=== PATIENT | male | born 1955 | race Caucasian/White ===

== ENCOUNTER 2025-03-15 12:50 | Outpatient (AMB) | payer MEDICARE, SELFPAY ==
--- NOTE | 2025-03-15 12:56 | MHC.OFFVIS ---
Vital Signs 03/15/25 12:57 Height 5 ft 10.5 in Weight 226 lb BMI 32.0 BP 148/91 H Blood Pressure Location Rt brachial Position Sitting Respiration 16 Pulse 82 Pulse Source Pulse Oximeter Pulse Oximetry (%) 94 Oxygen Delivery Method Room Air Intake Visit Reasons: Chronic arthritis Director Payer Required: No Accompanied by: Self / Same As Patient Allergies No Known Allergies Allergy (Verified 03/15/25 12:59) HPI HPI Chronic arthritis: Details: History of Present Illness The patient is a 69-year-old male presenting with generalized aches, pains, and headaches. He reports bilateral hip, neck, and back pain, as well as bilateral knee pain, which has been persistent for about a year. The hip and groin pain has been present for approximately five months. 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 He manages the pain with Advil and Tylenol. He has undergone a knee replacement on the left side and an ankle replacement on the right side. Additionally, he has had an anterior cervical discectomy and fusion (ACDF) at C4-5 and C5-6. The patient has been experiencing increasing arthritis in various joints over the past year, with some joints having been replaced. He has had multiple surgeries, including fusions in his neck and pins in his shoulder for a rotator cuff issue. Recent imaging, including an MRI of the lumbar spine, showed disc, facet, and vertebral endplate degeneration, with foraminal narrowing at the right L4-[address] of the abdomen and pelvis indicated mild to moderate arthritis of the right hip. Pain Description - Onset: Pain in the back for about a year, hip and groin pain for five months - Quality: Constant pain, rated 5 to 8 out of 10 - Location: Bilateral hips, neck, back, and knees - Exacerbating factors: Movements worsen the pain - Relieving factors: Uses Advil and Tylenol for pain management - Interference: Physical labor increases soreness, requiring heat and ice application Physical Exam - Musculoskeletal: Pain on extension and flexion, constant pain without sharp exacerbations, soreness with physical labor Results - MRI of the lumbar spine: Disc, facet, and vertebral endplate degeneration, foraminal narrowing at right L4-5 - CT of the abdomen and pelvis: Mild to moderate arthritis of the right hip Pain Management - Affect: Pain impacts daily activities, causing soreness with physical labor - Analgesia: Uses Advil and Tylenol, pain rated 5 to 8 out of 10 - Adverse Effects: None reported - Activities of Daily Living: Pain limits physical labor, requiring heat and ice application - Aberrant Drug Related Behaviors: None reported [facility] Medical History (Updated 03/16/25 @ 10:04 by Andry Lemus MD) Rotator cuff tear JORDANA (obstructive sleep apnea) Meralgia paresthetica of right side Knee osteoarthritis Hypertension GERD (gastroesophageal reflux disease) Duodenal ulcer Depression Surgical History (Updated 03/15/25 @ 13:04 by Mela Fuentes MA) Status post ankle joint replacement S/P knee replacement Physical Exam Vital Signs: Last Vital Signs Pulse 82 03/15/25 12:57 Resp 16 03/15/25 12:57 BP 148/91 H 03/15/25 12:57 Pulse Ox 94 03/15/25 12:57 Oxygen Delivery Method Room Air 03/15/25 12:57 BMI result Body Mass Index 32.0 Assessment & Plan Assessment & Plan (1) Chronic pain: Code(s): G89.29 - Other chronic pain Category: Medical (2) Lumbar spondylosis: Code(s): M47.816 - Spondylosis without myelopathy or radiculopathy, lumbar region Category: Medical (3) 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 - Discussed temporary medial branch nerve stimulation for chronic axial low back pain due to facet, disc, and vertebral endplate degeneration. If no relief from temporary PNS, can consider SCS for NSBP. - Recommended obtaining a new MRI to assess the current status of the lumbar spine and right hip. - Advised against surgery for back pain unless significant leg pain is present, as surgery may not alleviate back pain. - Agree with discussing treatment options with the patient's neurosurgeon before proceeding with interventions. Patient was informed and verbally consented to the use of an ambient scribe for clinic note documentation during this visit. Discussion Notes I discussed with the patient the option of platelet-rich plasma (PRP) injections for his right hip arthritis, explaining that while it may help arrest arthritic changes, it is not covered by insurance and costs $750 per injection. We also reviewed the potential use of temporary medial branch nerve stimulation for his axial low back pain, noting the mechanisms of action, with a 70% response rate. I advised obtaining a new MRI to evaluate the current condition of his lumbar spine and right hip, and suggested consulting with his neurosurgeon before making decisions about surgical interventions. Patient Instructions - Consider PRP injections for hip arthritis, but note they are not covered by insurance. - Think about temporary nerve stimulation for back pain management. - Obtain a new MRI for lumbar spine assessment if considering surgery for right leg pain. - Discuss treatment options with your neurosurgeon before proceeding. - Avoid surgery for back pain unless leg pain becomes significant. 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
[2025-03-15 12:57] VITALS: BP 148/91; PULSE 82; RESP 16; O2SAT 94; BMI 32.0
--- OUTSIDE RECORDS SUMMARY | 2025-03-15 13:31 | XMS_ITS | Clinical Summary ---
Author Organization [facility] Address [address] [facility] [address] [place] [id number] Phone Care Team Providers Care Sales Support Representative Name Role Phone Javier Cannon MD Primary Care Provider [phone] Medications oxyCODONE 5 MG immediate release tablet Take 5 mg by mouth every 4 (four) hours as needed for moderate pain or 4-6 (on a general 0-10 scale). 06/06/2022 Active ALPRAZolam (XANAX) 0.5 MG tablet Take 0.5 mg by mouth every 8 (eight) hours as needed for anxiety. 06/06/2022 Active cholecalciferol (VITAMIN D3) 5,000 unit tablet Take 2,000 Units by mouth daily. 06/06/2022 Active DULoxetine (CYMBALTA) 60 MG capsule Take 60 mg by mouth daily. 06/06/2022 Active lisinopril (PRINIVIL,ZESTR IL) 5 MG tablet Take 5 mg by mouth daily. 06/06/2022 Active magnesium oxide 250 mg (150 mg elemental) Tab Take 250 mg by mouth daily. 06/06/2022 Active omeprazole (PRILOSEC) 20 mg TbEC Take 20 mg by mouth daily. 06/06/2022 Active traZODone (DESYREL) 100 MG tablet Take 100 mg by mouth nightly at bedtime. 06/06/2022 Active aspirin 325 MG tablet Take 325 mg by mouth 2 (two) times a day. 07/06/2022 Active Social History Tobacco Use Types Packs/Day Years Used Date Smoking Tobacco: Never Smokeless Tobacco: Never Alcohol Use Standard Drinks/Week Comments Not Currently 0 (1 standard drink = 0.6 oz pur e alcohol) Education Answer Date Recorded Are you interested in more education? Not on kelly e 12/21/2022 Are you concerned about learning? Not on file 12/21/2022 No 12/21/2022 No 12/21/2022 Digital Access Answer Date Recorded No 01/19/2023 No 01/19/2023 No 01/19/2023 Reliable internet access at home? Not on file 01/19/2023 Device with a working camera? Not on file Sex and Gender Information Value Date Recorded Sex Assigned at Male 07/08/2021 12:50 PM EST Legal Sex Male 10:34 AM EDT Gender Identity Male 07/08/2021 12:50 PM EST Sexual Orientation Straight 07/08/2021 12 :50 PM EST Last Filed Vital Signs Vital Sign Reading Time Taken Comments Blood Pressure 132/72 07/12/2022 11:50 AM EST Pulse 71 07/12/2022 11:50 AM EST Temperature 36.6 C (97.9 F) 07/12/2022 11:50 AM EST Respiratory Rate 16 06/07/2022 1:40 PM EDT Oxygen Saturation 98% 07/12/2022 11:50 AM EST Inhaled Oxygen Concentration - - Weight - - Height - - Body Mass Index - - Plan of Treatment Health Maintenance Due Date Last Done Comments Adult Td,Tdap Booster 1957 LIPID PANEL 1957 DEPRESSION SCREENING 1969 HEPATITIS C SCREENING 1975 SMOKING STATUS SCREENING (On ce After 26 Yrs) 1983 COLOGUARD 2002 COLONOSCOPY 2002 COLORECTAL CANCER SCREENING 2002 FIT TEST 2002 FOBT 2002 SIGMOIDOSCOPY 2002 VIRTUAL COLONOSCOPY 2002 PNEUMOCOCCAL VACCINES (50+ years) (1 of 1 - PCV) 2007 ZOSTER VACCINES (1 of 2) 2007 CREATININE LEVEL 07/08/2022 07/08/2021 POTASSIUM LEVEL 07/08/2022 07/08/2021 COVID-19 VACCINE (3 - 2023-2 5 season) 2024 10/28/2020, 10/07/2020 RSV VACCINE (1 - 1-dose 75+ series) 2032 HEPATITIS A VACCINES Aged Out No long er eligible based on patient's age to complete this topic HIB VACCINES Aged Out No longer eligi ble based on patient's age to complete this topic MENINGOCOCCAL VACCINES (ACWY) Aged Out No longer eligible based on patient's age to complete this topic MENINGOCOCCAL VACCINES (B) Aged Out N o longer eligible based on patient's age to complete this topic Medical Devices Not on file Procedures Procedure Name Priority Date/Time Associated Diagnosis Comments BASIC METABOLIC PANEL STAT 07/08/2021 12:58 PM EST from Last 3 Months or Most Recently Relevant to Health Maintenance Results * Basic metabolic panel (07/08/2021 12:58 PM EST) SODIUM 142 133 - 146 mmol/L [facility] CHLORIDE 106 96 - 108 mmol/L [facility] POTASSIUM 5.1 3.3 - 5.1 mmol/L [facility] CO2 25 21 - 35 mmol/L [facility] BUN 16 6 - 19 mg/dL [facility] CREATININE 0.70 0.5 - 1.5 mg/dL [facility] GLUCOSE 94 70 - 99 mg/dL [facility] CALCIUM 9.8 8.4 - 10.3 mg/dL [facility] EGFR 100 >59 mL/min/1.7 3m2 [facility] Comment:Estimated glomerular filtration rate calculated using the CKD-EPI equation. ANION GAP 16 10 - 20 mmol/L [facility] Blood 07/08/2021 12:5 8 PM EST 07/08/2021 1:22 PM EST us Bruce Leigh MD LAB BLOOD ORDERABLES Fin al Result [facility] [address] [place] [address] from Last 3 Months or Most Recently Relevant to Health Maintenance [place] [address] [place] [address] [place] [address] [place] [address] [address]MO [address] [address] [place] [address] HMO [facility] HMO Care Teams Sales Support Representative Relationship Specialty Start Date End Date Javier Cannon MD [address] [address] PCP - General Internal Medicine 11/18/20 Additional Source Comments The information contained in this document represents components of the legal health record. It is not the complete legal health record.[facility]
--- OUTSIDE RECORDS SUMMARY | 2025-03-15 13:31 | XMS_ITS | Clinical Summary ---
Author Organization [facility] [address] [facility] Address [address] [place] [address] Phone Care Team Providers Care Printing Roller Polisher Name Role Phone Jessica Pham NP Primary Care Provider [phone] Allergies No known active allergies Medications ibuprofen (ADVIL,MOTRIN) 800 mg tablet Take 1 tablet (800 mg total) by mouth 3 (three) times a day with meals. 4 Active omeprazole (PriLOSEC) [address] capsule Take 1 capsule (20 mg total) by mouth 1 (one) time each day. before a meal 4 Active oxyCODONE (ROXICODONE) 5 mg immediate release tablet TAKE 1 TABLET BY MOUTH EVERY 8 HOURS,X7 DAYS, NEEDED FOR PAIN 4 Active traZODone (DESYREL) 100 mg tablet Take 1 tablet (100 mg total) by mouth. at bedtime. 5 Active gabapentin (NEURONTIN) 300 mg capsule Take 1 capsule (300 mg total) by mouth 2 (two) times a day. 5 Active ALPRAZolam (XANAX) 0.5 mg tablet Take 1 tablet (0.5 mg total) by mouth 2 (two) times a day if needed. Max Daily Amount: 1 mg 5 Active polyethylene glycol (Golytely) 236-22.74-6.74 -5.86 gram solution Take 4L by mouth once for one dose. May substitue any PEG. Starting at 6PM the night before your procedure drink 1 8oz glasses at your own pace until you complete half of the gallon. Finish 2nd half of the gallon 5 hours before your procedure. 4000 mL Active Social History Tobacco Use Types Packs/Day Years Used Date Smoking Tobacco: Never Assessed Sex and Gender Information Value Date Recorded Sex Assigned at Not on file Legal Sex Male 8:30 PM EST Gender Identity Not on file Sexual Orientation Not on file Plan of Treatment Health Maintenance Due Date Last Done Comments DTaP,Tdap,and Td Vaccines (1 - Tdap) 1976 Pneumococcal Vaccine: 50+ Years (1 of 1 - PCV) 2007 Zoster Vaccines (1 of 2) 2007 Abdominal Aortic Aneurysm (AAA) Screen 09/20/2023 Cholesterol Screening (Lipid Panel) 09/20/2023 Falls Risk Assessment 09/20/2023 Hepatitis C Screening 09/20/2023 Medicare Annual Wellness Visit 09/20/2023 Social Influencers of Health Screening 09/20/2023 COVID-19 Vaccine ( - 2023-2 5 season) 2024 Depression Screening 08/26/2024 Hypertension/CHF/CAD Annual BMP Blood Test 12/08/2024 04/17/2022 Influenza Vaccine (#1) 2025 RSV Immunization Adult Patients (1 - 1-dose 75+ series) 2032 Colorectal Cancer Screening: Colonoscopy 12/09/2034 12/09/2024, 11/04/2024 HIB Vaccines Aged Out No longer eligi ble based on patient's age to complete this topic HPV Vaccines Aged Out No longer eligi ble based on patient's age to complete this topic Hepatitis A Vaccines Aged Out No long er eligible based on patient's age to complete this topic Hepatitis B Vaccines Aged Out No long er eligible based on patient's age to complete this topic IPV Vaccines Aged Out No longer eligi ble based on patient's age to complete this topic MMR Vaccines Aged Out No longer eligi ble based on patient's age to complete this topic Meningococcal ACWY Vaccine Aged Out N o longer eligible based on patient's age to complete this topic Meningococcal B Vaccine Aged Out No l onger eligible based on patient's age to complete this topic RSV Immunization Patients Under 20 months Aged Out No longer eligible b ased on patient's age to complete this topic Varicella Vaccines Aged Out No longer eligible based on patient's age to complete this topic Procedures Procedure Name Priority Date/Time Associated Diagnosis Comments EXTERNAL COLONOSCOPY REPORT Routine 12/09/2024 3:09 PM EDT from Last 3 Months or Most Recently Relevant to Health Maintenance Results * External Colonoscopy Report (12/09/2024 3:09 PM EDT) Anatomical Region Laterality Modality Endoscopy us Historical Provider GI~PROCEDURE ORDERABLES F inal Result from Last 3 Months or Most Recently Relevant to Health Maintenance Insurance MEDICARE [facility] Care Teams Printing Roller Polisher Relationship Specialty Start Date End Date Jessica Pham NP [address] [place] [address] PCP - General Nurse Practitioner 11/09/24
--- OUTSIDE RECORDS SUMMARY | 2025-03-15 13:31 | XMS_ITS | Clinical Summary ---
Author Organization [facility] Address [address] [place] [address] Care Team Providers Care Logger All Round Name Role Phone Radhames Alvares MD Unavailable [phone] Ronnie Murcia MD Primary Care Provider [phone] Allergies No known active allergies Medications DULoxetine (CYMBALTA) 60 MG capsule Take 120 mg by mouth every morning. 2 Active traZODone (DESYREL) 100 MG tablet Take 50 mg by mouth nightly. 2 Active OMEprazole (PriLOSEC) 20 MG capsule Take 20 mg by mouth every morning before breakfast. Active lisinopril (PRINIVIL,ZeSTR IL) 5 MG tablet Take 5 mg by mouth every morning. Active ALPRAZolam (XANAX) 0.5 MG tablet Take 0.5 mg by mouth 3 times daily (every 8 hours) as needed for anxiety. Active b complex vitamins capsule Take 1 capsule by mouth every morning. Active Magnesium Oxide 250 MG Tab tablet Take 250 mg by mouth every morning. Take 2 hours apart from other medications; take with food Active Multiple Vitamin tablet Take 1 tablet by mouth every morning. Active D-5000 125 MCG (5000 UT) tablet TAKE 1 TABLET BY MOUTH DAILY, START TAKING AFTER SURGERY 2 Active docusate sodium (COLACE) 100 MG capsule TAKE 1 CAPSULE BY MOUTH TWICE A DAY NEEDED 2 Active lisinopril-hydr ochlorothiazide (PRINZIDE,ZESTO RETIC) 10-12.5 MG per tablet Take 1 tablet by mouth every morning. 04/28/20 21 Discontinu ed(Patient Discharge) Misc Natural Products (Turmeric Curcumin) Cap Take by mouth every morning. 04/28/20 Discontinu ed(Patient Discharge) magnesium gluconate (MAGONATE) 500 (27 Mg) MG tablet Take 500 mg by mouth every morning. 04/28/20 21 Discontinu ed(Patient Discharge) diphenhydrAMINE -acetaminophen (TYLENOL PM) 25-500 MG Tab Take 1 tablet by mouth nightly as needed for sleep. 04/28/20 21 Discontinu ed(Patient Discharge) Multiple Vitamins-Minera ls (CENTRUM SILVER 50+MEN PO) Take by mouth every morning. 2 05/12/20 22 Discontinu ed(Patient Discharge) vitamin B complex-vitamin C (ALLBEE/C) Tab tablet Take 1 tablet by mouth every morning. 05/12/20 Discontinu ed(Patient Discharge) Active Problems Problem Noted Date Diagnosed Date Hypertension 04/17/2021 Anxiety 04/17/2021 JORDANA (obstructive sleep apnea) 04/17/2021 GERD (gastroesophageal reflux disease) 1 Family History Medical History Relation Name Comments Arthritis Mother Relation Name Status Comments Brother Alive Father Mother Sister Alive Social History Tobacco Use Types Packs/Day Years Used Date Smoking Tobacco: Never Smokeless Tobacco: Never Alcohol Use Standard Drinks/Week Comments Not Currently 6 (1 standard drink = 0.6 oz pure alcohol) stop drinking 2 week prior to surgery. AUDIT-C Answer Date Recorded Q1: How often do you have a drink containing alc ohol? Monthly or less 04/16/2022 Q2: How many drinks containi ng alcohol do you have on a typical day when you are drinking? 1 or 2 04/16/2022 Q3: How often do you have si x or more drinks on one occasion? Never 04/16/2022 Sex and Gender Information Value Date Recorded Sex Assigned at Not on file Legal Sex Male 3:50 PM EDT Gender Identity Not on file Sexual Orientation Not on file Last Filed Vital Signs Vital Sign Reading Time Taken Comments Blood Pressure 127/75 06/04/2022 1:15 PM EDT Pulse 91 06/04/2022 1:15 PM EDT Temperature 36.1 C (97 F) 06/04/2022 12:00 PM EDT Respiratory Rate 22 06/04/2022 1:15 PM EDT Oxygen Saturation 93% 06/04/2022 1:15 PM EDT Inhaled Oxygen Concentration - - Weight 97 kg (213 lb 12.8 oz) 05/23/2022 10:51 A M EDT Height 168.9 cm (5' 6.5 ) 05/23/2022 10:51 AM ED T Body Mass Index 33.99 05/23/2022 10:51 AM EDT Plan of Treatment Health Maintenance Due Date Last Done Comments Hepatitis C Virus Screening 1957 DTaP/Tdap/Td Vaccines (1 - Tdap) 1976 Colonoscopy 2002 Pneumococcal Vaccines 50+ (1 of 1 - PCV) 2007 Zoster (Shingles) Vaccine (1 of 2) 2007 COVID-19 Vaccine ( - 2023-2 5 season) 2024 Influenza Vaccine 03/26/2025 RSV Vaccine 60 years and old er and Patients (1 - 1-dose 75+ series) 2032 Hepatitis B Vaccines Aged Out No long er eligible based on patient's age to complete this topic Medical Devices Implanted Type Area Pawn Shop Keeper Device Identifier Shelf Expiration Date Model / Serial / Lot [id number] [place] Suture 0 .5 Crc 4 Dmd Sut Tk Fbrwr Needle Bcmps 22.2 - [id number] Implanted:Qt y: 1 on 06/04/2022 by Radhames Alvares MD at [facility] [place] Right: Ankle [employer] 10/23/2025 [id number] / / [id number] Stem Tlr 10mm Inbone 1 Lg Ankl - [id number] Implanted:Qt y: 1 on 06/04/2022 by Radhames Alvares MD at [facility] Joint Prosthesis Right: Ankle [employer] 02/07/[id number] / / [id number] Inbone Tibial Top Stem 16mm Implanted:Qt y: 1 on 06/04/2022 by Radhames Alvares MD at [facility] Right: Ankle [employer] 07/28/2029 [id number] / / [id number] Inbone Tibial Base Stem 18mm Implanted:Qt y: 1 on 06/04/2022 by Radhames Alvares MD at [facility] Right: Ankle [employer] 12/15/2029 [id number] / / [id number] Inbone Tibial Tray Plasma [place], Right, Size 4 Implanted:Qt y: 1 on 06/04/2022 by Radhames Alvares MD at [facility] Right: Ankle [employer] 05/03/[id number] / / [id number] Inbone Talar Dome Size 3 Implanted:Qt y: 1 on 06/04/2022 by Radhames Alvares MD at [facility] Right: Ankle [employer] 10/23/[id number] / / [id number] Inbone Poly Insert Sulcus Size 3+, H: 10mm Implanted:Qt y: 1 on 06/04/2022 by Radhames Alvares MD at [facility] Right: Ankle [employer] 12/24/[id number] / / [id number] Explanted Type Area Pawn Shop Keeper Device Identifier Shelf Expiration Date Model / Serial / Lot Inbone Poly Insert Sulcus Size 3+ H:10mm Explanted:Qty: 1 on 06/04/2022 by Radhames Alvares MD at [facility] Right: Ankle [employer] 12/06/[id number] / / [id number] Insurance [facility] Advance Directives * Full Code (Latest Code Status on File) Date Activated Date Inactivated Comments 06/04/2022 5:56 AM Care Teams Logger All Round Relationship Specialty Start Date End Date Ronnie Murcia MD [address] [facility] [address] [place] [address] PCP - General 05/30/22 Radhames Alvares MD [address] [place] [address] Surgery, Orthopedic 04/14/21
== END 2025-03-15 13:39 | disposition home or self-care (01) ==
LOC: HO.PMC 12:51
PROVIDERS: PCP Physician Assistant Medical; Referring Provider Physician Assistant Medical; Visit Provider Internal Medicine
DX: G89.29 Other chronic pain (principal); M47.816 Spondylosis without myelopathy or radiculopathy, lumbar region; M51.360 Other intervertebral disc degeneration, lumbar region with discogenic back pain only; M16.9 Osteoarthritis of hip, unspecified
CPT/HCPCS: 99204

== ENCOUNTER → 2025-03-15 12:50 | Outpatient (BNVA) | payer MEDICARE, SELFPAY | PROVIDERS: PCP Physician Assistant Medical; Referring Provider Physician Assistant Medical; Visit Provider Internal Medicine | DX: M47.816 Spondylosis without myelopathy or radiculopathy, lumbar region (principal); M51.360 Other intervertebral disc degeneration, lumbar region with discogenic back pain only; M16.9 Osteoarthritis of hip, unspecified; G89.29 Other chronic pain | CPT/HCPCS: 99202 ==